=== PATIENT | male | born 1995 | race Caucasian/White ===

== ENCOUNTER 2025-06-11 13:35 | Outpatient (OUT) | payer MEDICAID, SELFPAY ==
--- OUTSIDE RECORDS SUMMARY | 2025-06-11 13:38 | XMS_ITS | Encounter Summary ---
Author Organization [facility] tem Address [id number] [address] [place] [address] Care Team Providers Care Tape Deck Installer Name Role Phone Jagruti Adame DO Primary Care Provider [phone] Encounter Details DateTypeDepartmentCare Team (Latest Contact Info)Eydjhxcuogv23/27/2025Travel Social History Tobacco UseTypesPacks/DayYears UsedDateSmoking Tobacco: Every DaySmokeless Tobacco: NeverAlcohol UseStandard Drinks/WeekCommentsYes0 (1 standard drink = 0.6 oz pure alcohol)ChildcareAnswerDate OjbvkaxwYmktwpmbuKvsgwij40/06/2021 EmploymentAnswerDate DglizyqqOvncuzssazGadthtg49/06/2021Hunger ScreeningAnswer Date RecordedWithin the past 12 months we worried whether our food would run out before we got money to buy more.Never True12/02/2024Within the past 12 months the food we bought just didn't last and we didn't have money to get more.Never True12/02/2024Purpose - LifeAnswerDate RecordedPurpose and direction in life Gpinfhs9111/05/2020ex and Gender InformationValueDate RecordedSex Assigned at BirthNot on fileLegal JfkUwiy5203/07/2015 11:48 AM EDTGender IdentityNot on file Sexual OrientationNot on filedocumented as of this encounter Plan of Treatment Not on file documented as of this encounter Visit Diagnoses Not on filedocumented in this encounter Care Teams Team MemberRelationshipSpecialtyStart DateEnd Date Jagruti Adame DO [address] [place] [address] PCP - GeneralFamily Rgdgftza80/27/25documented as of this encounter
--- OUTSIDE RECORDS SUMMARY | 2025-06-11 13:38 | XMS_ITS | Clinical Summary ---
Author Organization [facility] Address [address] [place] [address], [address] [place] [address] Care Team Providers Care Shipping Clerk Packing Name Role Phone Unavailable Primary Care Provider Unavailabl e Social History Tobacco UseTypesPacks/DayYears UsedDateSmoking Tobacco: Never AssessedSex and Gender InformationValueDate RecordedSex Assigned at BirthNot on fileLegal Sex Male09/11/2012 5:34 PM ESTGender IdentityNot on fileSexual OrientationNot on file Plan of Treatment Not on file
--- OUTSIDE RECORDS SUMMARY | 2025-06-11 13:38 | XMS_ITS | Clinical Summary ---
Author Organization [employer] tem Address [facility] [id number] [address] [place] [address] Care Team Providers Care Risk Officer Name Role Phone Jagruti Adame Primary Care Provider [phone] Allergies No known active allergies Medications MedicationSigDispense QuantityRefillsLast FilledStart DateEnd DateStatus meclizine (ANTIVERT) 25 mg tablet Take 1 tablet (25 mg total) by mouth 3 (three) times a day as needed for dizziness. 20 tablet 5Active Active Problems ProblemNoted DateDiagnosed DateTonsillar nupiyugpecn35/22/2021eviated septum 11/21/2020Mucous retention cyst of maxillary sinus11/21/2020Neoplasm of uncertain behavior-ytbuawkbh43/19/2021creening for thyroid /19/2021 Encounters DateTypeDepartmentCare OlphHntewsmtexe59/27/2025Travelfrom Last 3 Months Social History Tobacco UseTypesPacks/DayYears UsedDateSmoking Tobacco: Every DaySmokeless Tobacco: NeverAlcohol UseStandard Drinks/WeekCommentsYes0 (1 standard drink = 0.6 oz pure alcohol)ChildcareAnswerDate AkzvllwaPxgyyeivtXrmttsd78/06/2021 EmploymentAnswerDate VjemsqzbTojpzivqcdDtffflq23/06/2021Hunger ScreeningAnswer Date RecordedWithin the past 12 months we worried whether our food would run out before we got money to buy more.Never True12/02/2024Within the past 12 months the food we bought just didn't last and we didn't have money to get more.Never True12/02/2024Purpose - LifeAnswerDate RecordedPurpose and direction in life Fucezuh2011/05/2020ex and Gender InformationValueDate RecordedSex Assigned at BirthNot on fileLegal ZyhRyxn0903/07/2015 11:48 AM EDTGender IdentityNot on file Sexual OrientationNot on file Last Filed Vital Signs Vital SignReadingTime TakenCommentsBlood Qxcmoyuc10/7412/02/2024 4:30 PM EDT Jwzfq026812/02/2024 5:15 PM XPDVdkmxtqcqla44 ??C (98.6 ??F)12/02/2024 3:00 PM EDT Respiratory Gyck197612/02/2024 5:15 PM EDTOxygen Jootjhzkoc84%12/02/2024 5:15 PM EDTInhaled Oxygen Concentration--Ozwltz820.6 kg (288 lb)11/21/2020 3:27 PM EDT Aiwuys532.7 cm (5' 8 )11/21/2020 3:27 PM EDTBody Mass Index43.7911/21/2020 3:27 PM EDT Plan of Treatment Health MaintenanceDue DateLast DoneCommentsTobacco Exbiuuidfv1993 Depression Upuvwklys00/28/2005Tobacco Lmzrmxdzi25/28/2005Adult BMI Screening 2011Influenza Dfjmzvx42DTaP,Tdap and Td Vaccines (8 - Td or Tdap), 11/09/2006, 12/10/1998, Additional history exists Medical Devices Not on file Procedures Procedure NamePriorityDate/TimeAssociated DiagnosisCommentsEXTRA TUBES SST TOP Wbhmywt9005/28/2025 10:47 AM EDT Neoplasm of unspecified behavior of endocrine glands and other parts of nervous system Encounter for general adult medical examination without abnormal findings 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 TESTOSTERONE, FREE AND TOTAL ATWMQwvecnn67/27/2025 10:47 AM EDT Neoplasm of unspecified behavior of endocrine glands and other parts of nervous system Encounter for general adult medical examination without abnormal findings 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 EXTRA RXJZZKzlflvw49/27/2025 10:47 AM EDT Neoplasm of unspecified behavior of endocrine glands and other parts of nervous system Encounter for general adult medical examination without abnormal findings 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 UNLISTED LAB KQVOBnagwwx85/27/2025 10:47 AM EDT Neoplasm of unspecified behavior of endocrine glands and other parts of nervous system Encounter for general adult medical examination without abnormal findings 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 COMPREHENSIVE METABOLIC RJFCYIkgxqvv81/27/2025 10:47 AM EDT Neoplasm of unspecified behavior of endocrine glands and other parts of nervous system Encounter for general adult medical examination without abnormal findings 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 CBC WITH AUTO GLZXUWEBAQMUDoqpsfg43/27/2025 10:47 AM EDT Neoplasm of unspecified behavior of endocrine glands and other parts of nervous system Encounter for general adult medical examination without abnormal findings 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 HEMOGLOBIN F3IYyaeloo27/27/2025 10:47 AM EDT Neoplasm of unspecified behavior of endocrine glands and other parts of nervous system Encounter for general adult medical examination without abnormal findings 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 ULDEBKIQMTiqwfvi35/27/2025 10:47 AM EDT Neoplasm of unspecified behavior of endocrine glands and other parts of nervous system Encounter for general adult medical examination without abnormal findings 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 FOLLICLE STIMULATING IVWSJAYAbsengj66/27/2025 10:47 AM EDT Neoplasm of unspecified behavior of endocrine glands and other parts of nervous system Encounter for general adult medical examination without abnormal findings 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 LUTEINIZING OTBQVKDJknunmu98/27/2025 10:47 AM EDT Neoplasm of unspecified behavior of endocrine glands and other parts of nervous system Encounter for general adult medical examination without abnormal findings 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 THYROID PROFILE INCLUDES TSH SE6Uremqdi19/27/2025 10:47 AM EDT Neoplasm of unspecified behavior of endocrine glands and other parts of nervous system Encounter for general adult medical examination without abnormal findings 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 LIPID AOQDFTPEndvoub53/27/2025 10:47 AM EDT Neoplasm of unspecified behavior of endocrine glands and other parts of nervous system Encounter for general adult medical examination without abnormal findings 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 from Last 3 Months Results * SST TOP (05/28/2025 10:47 AM EDT)ComponentValueRef RangeTest MethodAnalysis TimePerformed AtPathologist SignatureExtra TubeAuto Uvbekkzj97/27/2025 1:01 PM [facility] LABORATORYSpecimen (Source)Anatomical Location / LateralityCollection Method / VolumeCollection TimeReceived TimeBloodVenous blood / Iviekas4305/28/2025 10:47 AM EDT1 10:52 AM EDT Narrative Authorizing ProviderResult TypeResult StatusJessica Wendi DOLAB BLOOD ORDERABLES Final ResultPerforming OrganizationAddressCity/State/ZIP CodePhone Number [facility] [address] [place] [address], * Unlisted Lab Test (05/28/2025 10:47 AM EDT)ComponentValueRef RangeTest Method Analysis TimePerformed AtPathologist SignatureLOOKSent to Reference Lab 05/28/2025 2:00 PM [facility] LABORATORYSpecimen (Source) Anatomical Location / LateralityCollection Method / VolumeCollection Time Received TimeBloodVenous blood / UnknownVenipuncture / Ocqnwoz3305/28/2025 10:47 AM EDT1 10:51 AM EDT Narrative Authorizing ProviderResult TypeResult StatusJessica Wendi DOLAB BLOOD ORDERABLES Final ResultPerforming OrganizationAddressCity/State/ZIP CodePhone Number [facility] [address] [place] [address], [place] [phone] * Thyroid profile includes TSH FT4 (05/28/2025 10:47 AM EDT)ComponentValueRef RangeTest MethodAnalysis TimePerformed AtPathologist SignatureFREE T40.920.61 - 1.60 ng/dL05/28/2025 1:59 PM [facility] LABORATORYTSH3.12 0.49 - 4.67 uIU/mL05/28/2025 1:59 PM [facility] Specimen (Source)Anatomical Location / LateralityCollection Method / Volume Collection TimeReceived TimeBloodVenous blood / UnknownVenipuncture / Unknown 05/28/2025 10:47 AM EDT1 10:51 AM EDT Narrative Authorizing ProviderResult TypeResult StatusJessica Wendi DOLAB BLOOD ORDERABLES Final ResultPerforming OrganizationAddressCity/State/ZIP CodePhone Number [facility] [address] [place] [phone], * CBC auto differential (05/28/2025 10:47 AM EDT)ComponentValueRef RangeTest MethodAnalysis TimePerformed AtPathologist SignatureWBC6.14 - 11 x10E9/L 05/28/2025 1:03 PM [facility] LABORATORYRBC Count4.794.1 - 5.7 X10E12/L1 1:03 PM [facility] Mzsgnbrbcv41.713 - 17 g/dL05/28/2025 1:03 PM [facility] BPIQWUZJBUHlpmriteao57.239 - 50 %05/28/2025 1:03 PM [facility] BVXRCOPVPVQIS4143 - 100 fL05/28/2025 1:03 PM [facility] OXEQCAKUFQIAS05.727 - 34 pg05/28/2025 1:03 PM [facility] RNEKHJAKZUPXAD47.332 - 36 g/dL05/28/2025 1:03 PM [facility] GYXRBAWBJRJJQ29.211.5 - 15 %05/28/2025 1:03 PM [facility] LABORATORYPlatelet Vqauo808819 - 450 X10E9/L1 1:03 PM EDT [facility] KLMHASSRUKDQO43.07 - 12 fL05/28/2025 1:03 PM EDT [facility] LABORATORYNeutrophils %61.8%05/28/2025 1:03 PM EDT [facility] LABORATORYLymphocytes %28.0%05/28/2025 1:03 PM EDT [facility] LABORATORYMonocytes %7.2%05/28/2025 1:03 PM [facility] LABORATORYEosinophils %2.7%05/28/2025 1:03 PM [facility] LABORATORYBasophils %0.3%05/28/2025 1:03 PM [facility] LABORATORYNeutrophils Absolute (A)3.81.5 - 6.6 10*3/uL 05/28/2025 1:03 PM [facility] LABORATORYLymphocytes Absolute 1.71.0 - 3.5 10*3/uL05/28/2025 1:03 PM [facility] Monocytes Absolute0.40.0 - 0.9 10*3/uL05/28/2025 1:03 PM [facility] LABORATORYEosinophils Absolute0.20.0 - 0.4 10*3/uL05/28/2025 1:03 PM [facility] LABORATORYBasophils Absolute0.00.0 - 0.2 10*3/uL 05/28/2025 1:03 PM [facility] LABORATORYDifferential Type AUTOMATED PVGOOZHQUXDM98/27/2025 1:03 PM [facility] LABORATORYSpecimen (Source)Anatomical Location / LateralityCollection Method / VolumeCollection TimeReceived TimeBloodVenous blood / UnknownVenipuncture / Zfzkjyo3305/28/2025 10:47 AM EDT1 10:51 AM EDT Narrative Authorizing ProviderResult TypeResult StatusJessica Wendi DOLAB BLOOD ORDERABLES Final ResultPerforming OrganizationAddressCity/State/ZIP CodePhone Number [facility] [address] [place] [address], * (ABNORMAL) Prolactin (05/28/2025 10:47 AM EDT)ComponentValueRef RangeTest MethodAnalysis TimePerformed AtPathologist RtunfggzvQQTJHVNKO87.8(H)2.6 - 13.1 ng/mL05/28/2025 1:50 PM EDST[facility] LAB[facility]ATORYSpecimen (Source)Anatomical Location / LateralityCollection Method / VolumeCollection TimeReceived TimeBloodVenous blood / UnknownVenipuncture / Zfjxtoo0605/28/2025 10:47 AM EDT1 10:51 AM EDT Narrative Authorizing ProviderResult TypeResult StatusJessica Wendi DOLAB BLOOD ORDERABLES Final ResultPerforming OrganizationAddressCity/State/ZIP CodePhone Number [facility] [address] [place] [address], * (ABNORMAL) Testosterone, Free and Total, Male or Individuals on Testosterone Hormone Therapy (05/28/2025 10:47 AM EDT)ComponentValueRef RangeTest Method Analysis TimePerformed AtPathologist SignatureTESTOSTERONE,TOT82.3(L)300.0 - 1080.0 ng/dL06/02/2025 6:09 PM EDTARUP LABORATORIESComment: This test was developed and its performance characteristics determined by [facility]. It has not been cleared or approved by the [place] Food and Drug Administration. This test was performed in a CLIA certified laboratory and is intended for clinical purposes. TESTOSTERONE,F,AD,ML8.9(L)47.0 - 244.0 pg/mL06/02/2025 6:09 PM EDTARUP LABORATORIESComment: INTERPRETIVE INFORMATION: Testosterone, Free by Dialysis This laboratory reference method for the direct measurement of free testosterone is not recommended when low testosterone concentrations, such as those found in children and cisgender females, are expected. For these individuals, the preferred test is Testosterone, Free (Adult Females, Children, or Individuals on Testosterone-Suppressing Hormone Therapy) ([employer] test code 6704976). For individuals on testosterone hormone therapy, refer to cisgender male reference intervals. No reference intervals have been established for males younger than 18 years or for cisgender females. For a complete set of all established reference intervals, refer to ltd.Footnote/Tests/Pub/[id number]. This test was developed and its performance characteristics determined by [facility]. It has not been cleared or approved by the [place] Food and Drug Administration. This test was performed in a CLIA certified laboratory and is intended for clinical purposes. Performed By: [facility] [address] [place] [address] Park Landscape Architect: Zaki Ya MD, PhD [place] Number: [id number] Specimen (Source)Anatomical Location / LateralityCollection Method / Volume Collection TimeReceived TimeBloodVenous blood / UnknownVenipuncture / Unknown 05/28/2025 10:47 AM EDT1 10:51 AM EDT Narrative Authorizing ProviderResult TypeResult StatusJessica Wendi DOLAB BLOOD ORDERABLES Final ResultPerforming OrganizationAddressCity/State/[facility] CodeOutagamie County Health Center Number [address] [address], * Hemoglobin A1c (05/28/2025 10:47 AM EDT)ComponentValueRef RangeTest Method Analysis TimePerformed AtPathologist SignatureHEMOGLOBIN A1C5.64.4 - 5.6 % 05/28/2025 2:09 PM [facility] LABORATORYComment: ?ADA Guidelines ?Result ?HgbA1c ? Normal : ? less than 5.7 % ? Prediabetes : ?5.7 % ??to 6.4 % Diabetes : > 6.4 % ?Use with caution in patients with abnormal hemoglobin variants as ??the half-life of red blood cells and in vivo glycation rates are ??affected. EST. AVERAGE NEXHWQJ474qi/dL05/28/2025 2:09 PM [facility] LABORATORYSpecimen (Source)Anatomical Location / LateralityCollection Method / VolumeCollection TimeReceived TimeBloodVenous blood / UnknownVenipuncture / Rcwlfjl7305/28/2025 10:47 AM EDT1 10:51 AM EDT Narrative Authorizing ProviderResult TypeResult StatusJessica Wendi DOLAB BLOOD ORDERABLES Final ResultPerforming OrganizationAddressCity/State/ZIP CodePhone Number [facility] [address] [place] [address], * Luteinizing hormone (05/28/2025 10:47 AM EDT)ComponentValueRef RangeTest MethodAnalysis TimePerformed AtPathologist SignatureLUTEINIZING HORMONE1.51.2 - 8.6 mIU/mL05/28/2025 2:12 PM [facility] LABORATORYSpecimen (Source)Anatomical Location / LateralityCollection Method / VolumeCollection TimeReceived TimeBloodVenous blood / UnknownVenipuncture / Kfckoru5505/28/2025 10:47 AM EDT1 10:51 AM EDT Narrative Authorizing ProviderResult TypeResult StatusJessica Wendi DOLAB BLOOD ORDERABLES Final ResultPerforming OrganizationAddressCity/State/ZIP CodePhone Number [facility] [address] [place] [address], * Follicle stimulating hormone (05/28/2025 10:47 AM EDT)ComponentValueRef Range Test MethodAnalysis TimePerformed AtPathologist SignatureFOLLICLE STIM HORMONE 1.71.3 - 19.3 mIU/mL05/28/2025 2:10 PM [facility] Specimen (Source)Anatomical Location / LateralityCollection Method / Volume Collection TimeReceived TimeBloodVenous blood / UnknownVenipuncture / Unknown 05/28/2025 10:47 AM EDT1 10:51 AM EDT Narrative Authorizing ProviderResult TypeResult StatusJessica Wendi DOLAB BLOOD ORDERABLES Final ResultPerforming OrganizationAddressCity/State/ZIP CodePhone Number [facility] [address] [place] [address], [place] [phone] * (ABNORMAL) Lipid profile (05/28/2025 10:47 AM EDT)ComponentValueRef RangeTest MethodAnalysis TimePerformed AtPathologist ByodkxqpzRWNWTQGJHLF21(L)150 - 200 mg/dL05/28/2025 3:08 PM [facility] AIIWYAFDNGIUKVPYYAOPON7010 - 150 mg/dL05/28/2025 3:08 PM [facility] LABORATORYHDL ZUEBUVKKRNO18>39 mg/dL05/28/2025 3:08 PM [facility] LABORATORYComment: HDL <40 mg/dL - High Risk HDL > or = 40mg/dL- Desirable HDL >60 mg/dL - Negative Risk LDL (CALC)29<130 mg/dL05/28/2025 3:08 PM [facility] Comment: LDL <100 mg/dL - Desirable LDL >160 mg/dL - High Risk CHOLESTEROL:HDL1.81.0 - 5.010 3:08 PM [facility] LABORATORYVERY LOW JBCBIGTFBFW112 - 30 mg/dL05/28/2025 3:08 PM [facility] LABORATORYSpecimen (Source)Anatomical Location / Laterality Collection Method / VolumeCollection TimeReceived TimeBloodVenous blood / UnknownVenipuncture / Jgmpddw9005/28/2025 10:47 AM EDT1 10:51 AM EDT Narrative Authorizing ProviderResult TypeResult StatusJessica Wendi DOLAB BLOOD ORDERABLES Final ResultPerforming OrganizationAddressCity/State/ZIP CodePhone Number [facility] [address] [place] [address], * (ABNORMAL) Comprehensive metabolic panel (05/28/2025 10:47 AM EDT)Component ValueRef RangeTest MethodAnalysis TimePerformed AtPathologist SignatureSODIUM 516354 - 146 mmol/L1 3:08 PM [facility] POTASSIUM4.63.5 - 5.0 mmol/L1 3:08 PM [facility] MMBTRJKHLVVULDWXTJ09108 - 109 mmol/L1 3:08 PM [facility] LABORATORYCARBON OQRZBNO0574 - 32 mmol/L1 3:08 PM [facility] LABORATORYANION OOA208 - 15 mmol/L1 3:08 PM [facility] LABORATORYBLOOD UREA CGUJFVEU92(H)5 - 23 mg/dL 05/28/2025 3:08 PM [facility] LABORATORYCREATININE0.700.60 - 1.30 mg/dL05/28/2025 3:08 PM [facility] LABORATORYComment: METHOD TRACEABLE TO IDMS JTSHMKCUNNLXSEJ6484 - 99 mg/dL05/28/2025 3:08 PM [facility] LABORATORYCALCIUM9.78.5 - 10.5 mg/dL05/28/2025 3:08 PM [facility] LABORATORYTOTAL PROTEIN7.46.0 - 8.0 g/dL 05/28/2025 3:08 PM [facility] LABORATORYALBUMIN4.53.2 - 5.3 g/dL05/28/2025 3:08 PM [facility] LABORATORYALKALINE ENLZDNLREUJ5811 - 130 U/L1 3:08 PM [facility] TCYUYWGSTKSOJ15<=41 U/L1 3:08 PM [facility] PVIAHTMRQKXDT11<=40 U/L1 3:08 PM [facility] LABORATORYBILIRUBIN,TOTAL0.50.3 - 1.2 mg/dL05/28/2025 3:08 PM [facility]OR[facility]ORYEGFR Non-Race Dependent>90>=60 ml/min/1.73sq.m 05/28/2025 3:08 PM [facility] LABORATORYComment: Reported eGFR is based on the CKD-EPI 2020 equation that does not use a race coefficient. Specimen (Source)Anatomical Location / LateralityCollection Method / Volume Collection TimeReceived TimeBloodVenous blood / UnknownVenipuncture / Unknown 05/28/2025 10:47 AM EDT1 10:51 AM EDT Narrative Authorizing ProviderResult TypeResult StatusJessjhony Adame DOLAB BLOOD ORDERABLES Final ResultPerforming OrganizationAddressCity/State/ZIP CodePhone Number [facility] [address] [place] [address], [place] [phone] from Last 3 Months Insurance Care Teams Team MemberRelationshipSpecialtyStart DateEnd Date Jagruti Adame DO [address] [place] [address] PCP - GeneralFamily Vpxgqkmv00/27/25
--- OUTSIDE RECORDS SUMMARY | 2025-06-11 13:38 | XMS_ITS | Clinical Summary ---
Author Organization [facility] Address [address] [place] [address] Care Team Providers Care Thoracic Medicine Physician Name Role Phone Unavailable Primary Care Provider Unavailabl e Social History Tobacco UseTypesPacks/DayYears UsedDateSmoking Tobacco: Never AssessedUT Safety & EnvironmentAnswerDate RecordedFear of Current or Ex-PartnerNot on file 09/23/2023Emotionally AbusedNot on file09/23/2023hysically AbusedNot on file 09/23/2023Sexually AbusedNot on file09/23/2023hysically or Sexually AbusedNot on file09/23/2023Sex and Gender InformationValueDate RecordedSex Assigned at BirthNot on fileLegal SzgLsrs4201/28/2022 9:55 PM EDTGender IdentityNot on file Sexual OrientationNot on file Last Filed Vital Signs Vital SignReadingTime TakenCommentsBlood Jptprleg073/6103 9:18 AM EDT Opshz8069 9:18 AM FGCVycerrqpjjn92.7 ??C (98 ??F)10/21/2020 9:17 AM EDT Respiratory Rate--Oxygen Khfodcguhw776%10/21/2020 9:16 AM EDTInhaled Oxygen Concentration--Lwxsub406 kg (288 lb)10/21/2020 9:13 AM SJPQhboci533.3 cm (5' 9 ) 10/21/2020 9:14 AM EDTBody Mass Index42.53010/21/2020 9:13 AM EDT Plan of Treatment DateTypeDepartmentCare Team (Latest Contact Info)Ghuiwdghhej92/24/2025 3:30 PM ESTOffice Visit [facility] [address] [place] [phone] Ted Celeste MD [address] [place] [address] Health MaintenanceDue DateLast DoneCommentsDepression Yddarimri86/28/2005HPV Vaccines (1 - 3-dose SCDM series)2020Influenza Vaccine (#1)2025 06/22/2007dult Hosyqzt40, 11/09/2006Zoster Vaccines (1 of 2) 3108/22/2006, 11/09/2006HIB ZpxriqkiVwyoczmvi85/11/1995, 08/21/1994, 1993, Additional history existsIPV SovpuqnuCwhistany39/11/1995, 08/21/1994, 1993, Additional history existsVaricella VaccinesCompleted 06/22/2007, 11/09/2006Meningococcal B VaccineAged OutNo longer eligible based on patient's age to complete this topicMeningococcal VaccineAged OutNo longer eligible based on patient's age to complete this topicPneumococcal Vaccine: Pediatrics (0 to 5 Years) and At-Risk Patients (6 to 64 Years)Aged OutNo longer eligible based on patient's age to complete this topicRotavirus VaccinesAged Out No longer eligible based on patient's age to complete this topic
--- NOTE | 2025-06-11 13:41 | MR_ITS ---
[address] [address] Patient Name: RAFAEL BRAUN MRN: [id number] date: 1995 Sex: M Assigned Patient Location: MRI Current Patient Location: Accession/Order Number: [id number] Exam Date: 06/11/2025 13:50 Report Date: 06/12/2025 11:48 At the request of: JOSY GRAMAJO DO Procedure: MR pituitary wo/w con MR pituitary wo/w con 06/11/2025 2:39 PM SIGN AND SYMPTOMS: Pituitary Neoplasm, Growth Hormone Deficiency PROTOCOL: Multiplanar multisequence MR images of the brain with and without IV contrast COMPARISON: 09/20/2020 FINDINGS: Extra axial spaces: Age appropriate. Hemorrhage: None. Ventricular system: Within normal limits. Basal cisterns: Within normal limits and not effaced. Cerebral parenchyma: Similar gliosis is noted in the right frontal periventricular white matter. Midline shift: None.. Cerebellum: Within normal limits. Brainstem: Within normal limits. OTHER: Calvarium: Normal marrow signal. Vascular system: Satisfactory flow voids within the anterior and posterior circulation. Visualized Paranasal sinuses: Their is polypoid mucosal thickening in the right maxillary sinus. Visualized Orbits: Within normal limits. Visualized upper cervical spine: Within normal limits. Sella and skull base: There is thickening of the pituitary stalk which measures 7 x 6 x 5 mm in greatest dimension. This is unchanged when compared to the prior exam. The pituitary tissue otherwise within normal limits. MR/MR pituitary wo/w con IMPRESSION: There is thickening of the pituitary stalk which measures 7 x 6 x 5 mm in greatest dimension. This is unchanged when compared to the prior exam. The pituitary tissue otherwise within normal limits. Similar gliosis is noted in the right frontal periventricular white matter. This is unchanged. Impression dictated by: Bobby Cox M.D. 06/12/2025 11:48 AM Dictation Location: [place] [address] Electronically authenticated by: [id number] Y Date: 06/12/2025 11:48
== END 2025-06-11 13:36 | disposition home or self-care (01) ==
LOC: MRI 13:35
PROVIDERS: PCP Family Medicine; Visit Provider Family Medicine
DX: D49.7 Neoplasm of unspecified behavior of endocrine glands and other parts of nervous system (principal); E23.0 Hypopituitarism
CPT/HCPCS: 70553; A9575